=== PATIENT | female | born 1960 | race Caucasian/White ===

== ENCOUNTER 2023-03-18 14:48 | Emergency (ER) | payer OTHER ==
[2023-03-18 15:08] VITALS: TEMP 97
[2023-03-18 16:03] LABS: INFLUENZA A NEGATIVE (NEGATIVE); INFLUENZA B NEGATIVE (NEGATIVE); RESPIRATORY SYNCTIAL VIRUS NEGATIVE (NEGATIVE); SARS-CoV-2 Xpert Express NEGATIVE (NEGATIVE)
--- NOTE | 2023-03-18 16:08 | ERPHSYRPT ---
- History of Present Illness Time Seen by Provider: 03/18/23 15:55 Source: patient, family Exam Limitations: no limitations Patient Subjective Stated Complaint: pt here for pain to ears,pressure behind eyes, was seen monday and placed on antibotics, no fever Triage Nursing Assessment: pt alert, walked in, resp easy, skin w/d/p. no edema noted, denies any injury. states tylenol does help Physician History: 63yo f presents for KHAN that has persisted for the past week, worsened significantly last night. Pt reports she had a sinus infection in December that was treated w/ 3wk course of abx, felt relief for about 1mo and then started having sinus pressure, sinus congestion, and KHAN again 1wk ago. Pt is currently on day 5 of clindamycin course. Pt also complains of some fullness/pain in both ears. Pt reports some associated photophobia, denies n/v, blurry vision, tenderness over b/l temporal regions. Pt denies cp ,soa, recent trauma to head or face. Timing/Duration: yesterday, worse Quality: pressure Head Pain Location: frontal, parietal Severity of Pain-Max: moderate Severity of Pain-Current: moderate Recent Head Trauma: no recent headache/trauma Modifying Factors: Improves With: rest. Worsens With: exposure to light Associated Symptoms: sinus infection, sensitive to light, No confusion, No dizziness, No fever/chills, No loss of consciousness, No nausea/vomiting, No nasal congestion, No nasal drainage, No neck pain, No speech problems, No vision changes, No visual disturbance Previous symptoms: recently treated (tx for sinus infection by ENT w/ extended course abx) Allergies/Adverse Reactions: codeine Allergy (Verified 03/18/23 15:12) Penicillins Allergy (Verified 03/18/23 15:12) Home Medications: No Reportable Medications [No Reported Medications] 03/18/23 [History] Hx Tetanus, Diphtheria Vaccination/Date Given: No Hx Influenza Vaccination/Date Given: No Hx Pneumococcal Vaccination/Date Given: No Immunizations Up to Date: Yes Travel Risk - International Travel Have you traveled outside of the country in past 3 weeks: No - Coronavirus Screening Are you exhibiting any of the following symptoms?: Yes Symptoms: Headaches/Body Aches/Fatigue Close contact with a COVID-19 positive Pt in past 14-21 Days: No - Vaccine Status Have you recieved a Covid-19 vaccination: No - Review of Systems Constitutional: No Fever, No Chills Eyes: Photophobia, No Eye Redness, No Vision Changes, No Double Vision Ears, Nose, & Throat: Ear Pain, No Ear Discharge, No Hearing Changes, No Nose Congestion, No Nose Discharge, No Throat Pain Respiratory: No Symptoms Cardiac: No Symptoms Abdominal/Gastrointestinal: No Symptoms Neurological: No Symptoms - Past Medical History Pertinent Past Medical History: Yes Cardiac History: Hypertension Endocrine Medical History: Hypothyroidism - Past Surgical History Past Surgical History: Yes Gastrointestinal: Appendectomy, Exploratory Laparoscopy - Social History Smoking Status: Never smoker Exposure to second hand smoke: No Drug Use: none Patient Lives Alone: No - Nursing Vital Signs Nursing Vital Signs: Initial Vital Signs Temperature 97.0 F 03/18/23 15:06 Pulse Rate 64 03/18/23 15:06 Respiratory Rate 16 03/18/23 15:06 Blood Pressure 142/86 03/18/23 15:06 O2 Sat by Pulse Oximetry 100 03/18/23 15:06 Pain Scale Pain Intensity 4 - Physical Exam General Appearance: no apparent distress, alert Eye Exam: PERRL/EOMI, eyes nml inspection, photophobia Ears, Nose, Throat Exam: TM abnormal (L) (erythematous TM, non-bulging, intact) Neck Exam: normal inspection, non-tender Respiratory Exam: normal breath sounds, lungs clear, airway intact Cardiovascular Exam: regular rate/rhythm, normal heart sounds Gastrointestinal/Abdominal Exam: soft, No tenderness, No distention Mental Status Exam: alert, oriented x 3, 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 Exam: normal speech, PERRL, tongue midline, No facial asymmetry, No facial droop, No facial paresthesias, No facial weakness Coordination/Gait Exam: normal gait, normal cerebellar function, negative Ro mberg's sign Motor/Sensory Exam: no motor deficit, no sensory deficit SpO2 Interpretation: normal SpO2: 100 O2 Delivery: Room Air Ordered Tests: Active Orders 24 hr Category Date Time Status HEAD WITHOUT CONTRAST [CT] Stat Exams 03/18/23 15:58 Completed CBC W DIFF Stat Lab 03/18/23 16:15 Completed CMP Stat Lab 03/18/23 16:15 Completed Erythrocyte Sedimentation Rate Stat Lab 03/18/23 16:15 Completed Medication Summary Discontinued Medications Generic Name Dose Route Start Last Admin Trade Name Freq PRN Reason Stop Dose Admin Droperidol 1.25 mg 03/18/23 15:58 03/18/23 16:15 Droperidol 5 Mg/2 Ml Vial IV 03/18/23 15:59 1.25 mg STAT ONE Administration Droperidol Confirm 03/18/23 16:14 Droperidol 5 Mg/2 Ml Vial Administered 03/18/23 16:15 Dose 5 mg .ROUTE .STK-MED ONE Acetaminophen 1,000 mg in 100 mls @ 400 mls/hr 03/18/23 18:00 03/18/23 18:15 Ofirmev IV 03/18/23 18:14 400 mls/hr 1HRPRIOR ONE Administration Acetaminophen Confirm 03/18/23 18:10 Ofirmev Administered 03/18/23 18:11 Dose 100 mls @ ud IV .STK-MED ONE Acetaminophen Confirm 03/18/23 18:11 Ofirmev Administered 03/18/23 18:12 Dose 100 mls @ ud IV .STK-MED ONE Lab/Rad Data: Laboratory Result Diagrams 03/18/23 16:15 03/18/23 16:15 Laboratory Results 03/18/23 03/18/23 03/18/23 Range/Units 16:15 16:15 15:20 WBC 7.8 (4.0-10.5) x10^3/uL RBC 4.46 (4.1-5.4) x10^6/uL Hgb 13.9 (12.0-16.0) g/dL Hct 41.2 (35-47) % MCV 92.4 (78-100) fL MCH 31.2 (26-32) pg MCHC 33.7 (32-36) g/dL RDW 12.3 (11.5-14.0) % Plt Count 306 (150-450) x10^3/uL MPV 9.3 (7.5-11.0) fL Gran % 50.5 (36.0-66.0) % Immature Gran % (Auto) 0.3 (0.00-0.4) % Nucleat RBC Rel Count 0.0 (0.00-0.1) % Eos # (Auto) 0.06 (0-0.5) x10^3/uL Immature Gran # (Auto) 0.02 (0.00-0.03) x10^3u/L Absolute Lymphs (auto) 3.36 (1.0-4.6) x10^3/uL Absolute Monos (auto) 0.36 (0.0-1.3) x10^3/uL Absolute Nucleated RBC 0.00 (0.00-0.01) x10^3u/L Lymphocytes % 43.3 (24.0-44.0) % Monocytes % 4.6 (0.0-12.0) % Eosinophils % 0.8 (0.00-5.0) % Basophils % 0.5 (0.0-0.4) % Absolute Granulocytes 3.92 (1.4-6.9) x10^3/uL Basophils # 0.04 (0-0.4) x10^3/uL ESR 24 H (0-20) mm/hr Sodium 140 (137-145) mmol/L Potassium 3.6 (3.5-5.1) mmol/L Chloride 109 H (98-107) mmol/L Carbon Dioxide 23 (22-30) mmol/L Anion Gap 12.3 (5-15) MEQ/L BUN 19 H (7-17) mg/dL Creatinine 0.58 (0.52-1.04) mg/dL Estimated GFR 101.6 ML/MIN Glucose 91 (74-106) mg/dL Calcium 9.4 (8.4-10.2) mg/dL Total Bilirubin 0.40 (0.2-1.3) mg/dL AST 21 (14-36) U/L ALT 16 (0-35) U/L Alkaline Phosphatase 70 (38-126) U/L Serum Total Protein 7.7 (6.3-8.2) g/dL Albumin 4.3 (3.5-5.0) g/dL Influenza Type A Ag NEGATIVE (NEGATIVE) Influenza Type B Ag NEGATIVE (NEGATIVE) RSV (PCR) NEGATIVE (NEGATIVE) SARS-CoV-2 (PCR) NEGATIVE (NEGATIVE) - Progress Progress: improved Air Movement: good Progress Note: 03/18/23 17:22 CT head w/o - shows concern for subarrachnoid hemorrhage, recommending further evaluation w/ MRI plan for transfer to tertiary facility w/ MRI and Neurosurgery capabilities 01/20/24 17:35 Awaiting call back from neurosurgery 03/18/23 17:43 I spoke w/ Dr Aguilar - Neurosurgery at [facility] - Dr Aguilar recommended ER to ER transfer for MRI and evaluation by neurosurgery, also recommended CTA and CTV head if time allowed before transfer could be performed Nursing staff attempting to set up transport via air, ground crews currently unavailable 03/18/23 18:09 IV tylenol ordered, pt refused morphine air transport confirmed, ETA 35min 03/18/23 19:05 Air evac presenting to our facility for pt transfer Medical Desision Making - Discussion of managment Care discussed with:: specialist Reviewed:: Test results, Need for additional workup Agreed on:: decision to admit (transfer to [facility] ED [address] [place] [address]) Will see patient: in ED - Diagnostic Testing Diagnostic test were ordered, analyzed, and reviewed by me: Yes Radiological Interpretation: Teleradiologist Report - Risk of complications The pt has a high risk of morbidity or mortality based on: Decision regarding hospitilization or escalation of hosp level of care - Departure Departure Disposition: Transfer ([address] [place] [address] Aguilar Neurosurgery) Clinical Impression: Subarachnoid bleed Headache Qualifiers: Headache type: unspecified Headache chronicity pattern: acute headache Intractability: intractable Qualified Code(s): R51.9 - Headache, unspecified Condition: Stable Critical Care Time: Yes Critical Care Time(excluding separately billable procedures): Critical 30-74 mins Referrals: ABENA SINGER [Primary Care Provider] - Follow up/PCP as directed
[2023-03-18 16:42] LABS: Erythrocyte Sedimentation Rate 24 mm/hr (0-20)
[2023-03-18 16:44] LABS: Absolute Neutrophil Ct (ANC) 3.92 x10^3/uL (1.4-6.9); BASOPHIL % 0.5 % (0.0-0.4); Basophil (Absolute #) 0.04 x10^3/uL (0-0.4); Eosinophil % 0.8 % (0.00-5.0); Eosinophil (Absolute #) 0.06 x10^3/uL (0-0.5); Hematocrit 41.2 % (35-47); Hemoglobin 13.9 g/dL (12.0-16.0); IMMATURE GRAN # 0.02 x10^3u/L (0.00-0.03); IMMATURE GRAN % 0.3 % (0.00-0.4); Lymphocyte (Absolute #) 3.36 x10^3/uL (1.0-4.6); Lymphocytes % 43.3 % (24.0-44.0); Mean Cell Volume 92.4 fL (78-100); Mean Corpuscular Hemoglobin 31.2 pg (26-32); Mean Corpuscular Hgb Concent. 33.7 g/dL (32-36); Mean Platelet Volume 9.3 fL (7.5-11.0); Monocyte (Absolute #) 0.36 x10^3/uL (0.0-1.3); Monocytes % 4.6 % (0.0-12.0); Neutrophil % 50.5 % (36.0-66.0); Platelet Count 306 x10^3/uL (150-450); Red Blood Count 4.46 x10^6/uL (4.1-5.4); Red Cell Distribution Width 12.3 % (11.5-14.0); White Blood Count 7.8 x10^3/uL (4.0-10.5)
[2023-03-18 16:47] LABS: ALBUMIN 4.3 g/dL (3.5-5.0); ANION GAP 12.3 MEQ/L (5-15); BILIRUBIN,TOTAL 0.4 mg/dL (0.2-1.3); Calcium 9.4 mg/dL (8.4-10.2); Creatinine 1 0.58 mg/dL (0.52-1.04); EST GLOMERULAR FILTRATION RATE 101.6 ML/MIN; Potassium 3.6 mmol/L (3.5-5.1); Total Protein 7.7 g/dL (6.3-8.2)
--- NOTE | 2023-03-18 17:19 | XRAY ---
CLINICAL HISTORY:headache COMPARISON:None TECHNIQUE:An axial non-contrast CT scan of the brain was performed from the skull base to the high parietal region. Saggital and coronal reconstructions are also obtained. FINDINGS: The left tentorial leaflet is hyperdense and thickened measuring up to 2.0 mm. Phillips-white matter differentiation is maintained. No midline shifts or deformity. No intracerebral or extra axial hematoma. Normal size and configuration of the cerebral ventricles. Normal CT appearance of the posterior fossa structures namely the cerebellar hemispheres, brainstem, and cerebellar peduncles. The IACs are unremarkable. The cerebello-pontine angles are clear. The pituitary gland, the pineal gland, and the optic chiasm is unremarkable. The osseous structures in the skull base are unremarkable. No definite calvarium fractures. There are some fluid densities seen in the right frontal and bilateral anterior ethmoid sinuses. IMPRESSION: 1. Hyperdense and thickened left tentorium cerebelli, likely representing subarachnoid hemorrhage. MRI is suggested for further evaluation. 2. Mild right frontal and bilateral ethmoid sinusitis. [facility] ER was called at at 05:11 PM EST, 03/18/2023 and results were verbally communicated to Dr. Cevallos. Electronically Signed by: Raúl Carlin MD. (03/18/2023 17:15:59 EST)
[2023-03-18] MEDS ORDERED: OFIRMEV 1,000 MG/100 ML ML IV ONE (18:00)
[2023-03-18] MEDS ORDERED: OFIRMEV IV ONE (18:10)
[2023-03-18] MEDS ORDERED: OFIRMEV 100 ML IV ONE (18:11)
[2023-03-18 19:29] VITALS: BP 154/94; PULSE 100; RESP 16; O2SAT 96
== END 2023-03-18 19:20 | disposition short-term general hospital (02) ==
LOC: ED 14:48
DX: I60.9 Nontraumatic subarachnoid hemorrhage, unspecified (principal); R51.9 Headache, unspecified; H92.03 Otalgia, bilateral; H53.149 Visual discomfort, unspecified; I10 Essential (primary) hypertension; Z28.310 Unvaccinated for COVID-19
CPT/HCPCS: 0241U; 36000; 36415; 70450; 80053; 85025; 85652; 99284; 99291